=== PATIENT | female | born 1980 | race Caucasian/White ===

== ENCOUNTER 2016-12-09 11:38 | Emergency (ER) | payer BC ==
[2016-12-09 12:11] VITALS: BP 112/64
--- NOTE | 2016-12-09 12:51 | RAD ---
INDICATION: Left ankle pain COMPARISON: None TECHNIQUE: AP, lateral, and oblique views were obtained. FINDINGS: There is no acute fracture or dislocation. There is bilateral soft tissue swelling. IMPRESSION: LATERAL SOFT TISSUE SWELLING
--- NOTE | 2016-12-09 13:01 | UC ---
Lower Extremity/Ankle HPI - HPI Summary HPI Summary: LEFT ANKLE ROLLED LAST NIGHT ; (LATERAL) ANKLE PAIN AND SWELLING SINCE INJURY - History of Current Complaint Chief Complaint: UCLowerExtremity Stated Complaint: LEFT ANKLE PAIN Time Seen by Provider: 12/09/16 12:03 Hx Obtained From: Patient Hx Last Menstrual Period: 11/24/16 Onset/Duration: Sudden Onset, Lasting Days, Still Present Severity Initially: Moderate Severity Currently: Mild Aggravating Factor(s): Standing, Ambulation Alleviating Factor(s): Rest, Elevation, Ice Able to Bear Weight: Yes - Risk Factors Gout Risk Factors: Negative DVT Risk Factors: Negative Septic Arthritis Risk Factor: Negative - Allergies/Home Medications Allergies/Adverse Reactions: Allergies Allergy/AdvReac Type Severity Reaction Status Date / Time seasonal Allergy Eyes Uncoded 12/09/16 12:11 Itchy/Swollen/Red/Watery Home Medications: Home Medications Ibuprofen TAB* [Advil TAB*] 400 mg PO Q6H PRN 12/09/16 [History Confirmed ] PMH/Surg Hx/FS Hx/Imm Hx Previously Healthy: Yes - Surgical History Surgical History: None - Family History Known Family History: Positive: None - Social History Occupation: Employed Full-time Lives: With Family Alcohol Use: Rare Substance Use Type: None Smoking Status (MU): Never Smoked Tobacco - Immunization History Most Recent Influenza Vaccination: [id number] Review of Systems Constitutional: Negative Skin: Negative Eyes: Negative ENT: Negative Respiratory: Negative Cardiovascular: Negative Gastrointestinal: Negative Genitourinary: Negative Motor: Negative Neurovascular: Negative Musculoskeletal: Arthralgia, Edema - LATERAL LEFT ANKLE, Myalgia Neurological: Negative Psychological: Negative All Other Systems Reviewed And Are Negative: Yes Physical Exam Triage Information Reviewed: Yes Appearance: Well-Appearing, No Pain Distress, Well-Nourished Vital Signs: Initial Vital Signs Temp 99.2 F 12/09/16 12:06 Pulse 60 12/09/16 12:06 Resp 16 12/09/16 12:06 BP 112/64 12/09/16 12:06 Pulse Ox 99 12/09/16 12:06 Vital Signs Reviewed: Yes Eye Exam: Normal ENT Exam: Normal ENT: Positive: Normal ENT inspection, Hearing grossly normal, TMs normal Dental Exam: Normal Neck exam: Normal Neck: Positive: Supple, Nontender Respiratory Exam: Normal Respiratory: Positive: Chest non-tender, Lungs clear, Normal breath sounds, No respiratory distress Cardiovascular Exam: Normal Cardiovascular: Positive: RRR, No Murmur, Pulses Normal Abdominal Exam: Normal Abdomen Description: Positive: Nontender, No Organomegaly Musculoskeletal: Positive: Strength Intact, ROM Intact, Edema @ - LEFT LATERAL Neurological Exam: Normal Psychological Exam: Normal Skin Exam: Normal Lower Extremity Course/Dx - Differential Dx/Diagnosis Differential Diagnosis/HQI/PQRI: Fracture (Closed), Sprain, Strain Provider Diagnoses: LEFT ANKLE SPRAIN Discharge - Discharge Plan Condition: Stable Disposition: HOME Patient Education Materials: Ankle Sprain (ED) Referrals: [facility] [Outside] Stephanie Velez MD [Primary Care Provider] -
== END 2016-12-09 13:04 | disposition home or self-care (01) ==
LOC: UCCORT 11:38
DX: S93.402A Sprain of unspecified ligament of left ankle, initial encounter (principal); X50.1XXA Overexertion from prolonged static or awkward postures, initial encounter; Y93.9 Activity, unspecified; Y92.9 Unspecified place or not applicable
CPT/HCPCS: 99211; G0463

== ENCOUNTER 2017-07-19 07:33 | Emergency (ER) | payer BC ==
--- NOTE | 2017-07-19 07:34 | UC ---
Allergic Reaction HPI - HPI Summary HPI Summary: 37 year old female presents with complains of allergic reaction - History of Current Complaint Stated Complaint: ALLERGIC REACTION Time Seen by Provider: 07/19/17 07:34 Hx Obtained From: Patient Hx Last Menstrual Period: 05/15/17 Onset/Duration: Sudden Onset Severity Initially: Moderate Severity Currently: Moderate Pain Scale Used: 0-10 Numeric - 5 - Related Hx Possible Reaction To: Other: - bath balm - Allergies/Home Medications Allergies/Adverse Reactions: Allergies Allergy/AdvReac Type Severity Reaction Status Date / Time No Known Allergies Allergy Verified 07/19/17 07:42 PMH/Surg Hx/FS Hx/Imm Hx Previously Healthy: Yes - Surgical History Surgical History: None - Family History Known Family History: Negative: Cardiac Disease, Hypertension - Social History Alcohol Use: Rare Substance Use Type: None Smoking Status (MU): Never Smoked Tobacco - Immunization History Most Recent Influenza Vaccination: [id number] Review of Systems Constitutional: Negative Skin: Rash Eyes: Negative ENT: Negative Respiratory: Negative Cardiovascular: Negative Gastrointestinal: Negative Genitourinary: Negative Motor: Negative Neurovascular: Negative Musculoskeletal: Negative Neurological: Negative Psychological: Negative All Other Systems Reviewed And Are Negative: Yes Physical Exam Triage Information Reviewed: Yes Vital Signs Reviewed: Yes Eye Exam: Normal ENT Exam: Normal Dental Exam: Normal Neck exam: Normal Neck: Positive: 1 Respiratory Exam: Normal Cardiovascular Exam: Normal Abdominal Exam: Normal Musculoskeletal Exam: Normal Neurological Exam: Normal Psychological Exam: Normal Skin: Positive: rashes Allergic Reaction Course/Dx - Differential Dx/Diagnosis Provider Diagnoses: rash. contact dermatitis Discharge - Discharge Plan Condition: Stable Disposition: HOME Prescriptions: predniSONE TAB* [Deltasone TAB*] 40 mg PO DAILY #10 tab Triamcinolone 0.1% CREAM(NF) [Kenalog Cream 0.1%(NF)] 1 applic TOPICAL BID PRN # 85 gm PRN Reason: Itching Patient Education Materials: Contact Dermatitis (ED) Referrals: Stephanie Velez MD [Primary Care Provider] -
[2017-07-19 07:46] VITALS: BP 120/73
[2017-07-19] MEDS ORDERED: methylPREDNISolone 125 MG* 2 ML VIAL IM ONE (07:49)
== END 2017-07-19 08:21 | disposition home or self-care (01) ==
LOC: UCCORT 07:33
DX: L25.9 Unspecified contact dermatitis, unspecified cause (principal)
CPT/HCPCS: 96372; 99212; G0463; J2930

== ENCOUNTER 2018-08-24 07:00 | Emergency (ER) | payer BC ==
--- OUTSIDE RECORDS SUMMARY | 2018-08-24 07:20 | XMS REPORT | Continuity of Care Document ---
:1980 External Reference #:[id number] Author Name Stephanie Velez MD Address [address] [place] [address] Care Team Providers Name Role Phone Self Care Team Information [employer] Driver Unavailable Payers Date Identification Numbers Payment Provider Subscriber Effective: 2014 Policy Number: [id number] [facility] Commercial Maxi Carpio PayID: [id number] [address] [place] [address] Advance Directives Description No Information Available Problems Date Description Provider Status Onset: 01/24/2016 Recurrent herpes simplex labialis Stephanie Velez MD Active Onset: 01/24/2016 Anxiety disorder Stephanie Velez MD Active Onset: 01/24/2016 Chronic allergic conjunctivitis Stephanie Velez MD Active Onset: 01/24/2016 Perennial allergic rhinitis with seasonal Stephanie Velez MD Active variation Onset: 01/24/2016 Atopic dermatitis Stephanie Velez MD Active Onset: 01/24/2016 External hemorrhoids without complication Stephanie Velez MD Active Onset: 01/24/2016 Heartburn Stephanie Velez MD Active Family History Date Family Member(s) Observation Comments General Diabetes, Adult General Thyroid Disease Father Hypertension Father due to MS () Father LA first occured in his 40's Father Multiple Sclerosis Father Diabetes, Adult Father ankylosing spondylitis Mother Diabetes, Adult Mother Anxiety Mother Hypertension First Sister Thyroid Disease Social History Type Date Description Comments Sex Unknown Education Highest Level Completed education with a Master's Degree bachelors in human development Marital Status Lives With Children Lives With Spouse Diet Healthy, Well Balanced 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 [employer] Hand Dominance RIGHT-handed ADL's/IADL's Independent with all ADL's ADL's/IADL's Independent with all IADL's Abuse No history of abuse Hobbies Gardening Hobbies Sports Hobbies Baking ETOH Use Occasionally consumes alcohol Tobacco Use Start: Unknown Patient has never smoked Recreational Drug Use Denies Drug Use Smoking Status Reviewed: 02/15/18 Patient has never smoked Allergies, Adverse Reactions, Alerts Description No Known Drug Allergies Medications Medication Date Status Form Strength Qnty SIG Indications Ordering Provider Ranitidine HCL 08/18 Active Tablets 150mg 180ta 1 by mouth bs twice a day MD Stephanie as needed Escitalopram 06/24 Active Tablets 10mg 90tab 1 by mouth F41.9 Agustin Oxalate s every day MD Stephanie Epinastine HCL 01/23 Active Solution 0.05% 15ml 1 drop both H10.45 eyes twice MD Stephanie a day Valacyclovir HCL 01/23 Active Tablets 1gm 20tab 2 pills by B00.1 Agustin s mouth every MD Stephanie 12 hours x 2 doses for a total of 4 pills. as needed for cold sore Hydrocortisone 02/22 Active Cream 2.5% 30gm apply twice K64.4 daily to MD Stephanie perianal area as needed Triamcinolone Active Ointment 0.1% 15gm apply L20.9 Agustin Acetonide / thinly once MD Stephanie a day as needed Levocetirizine Active Tablets 5mg 90tab 1 by mouth Agustin Dihydrochloride / s every day MD Stephanie Mometasone Active Suspension 50mcg/Act 51gm 2 sprays Agustin Furoate / each MD Stephanie nostril every day Multivitamin Active Tablets 1 by mouth Unknown Adult / every day Premarin Active Cream 0.625mg/G 90gm 1/2 M applicator MD Stephanie full vaginally 2x/week Metronidazole 01/14 Hx Tablets 500mg 10tab 1 by mouth N77.1 Naim, s twice a day Oneil, - for five M.D. Oseltamivir 06/16 Hx Capsules 75mg 10cap 1 po daily Digiovann Phosphate s for 10 days a, - [place], 06/26 [facility] Omeprazole 01/[address] 20mg 90cap 1 by mouth Agustin s every day MD Stephanie - 01/23 Omeprazole 01/[address] 40mg 180ca 1 by mouth R12 ps twice a day MD Stephanie - 07/06 Escitalopram 01/23 Hx Tablets 5mg 90tab 1 by mouth F41.9 Bui, Oxalate s every day Pedro Luis, - DO 06/24 Azelastine HCL 01/23 Hx Solution 0.15% 90ml 2 sprays J30.89 Agustin (Nasal) each MD Stephanie - nostril 12/21 twice a day as needed. Omnaris 01/23 Hx Suspension 50mcg/Act 37.5g inhale 2 J30.89 Agustin m sprays in MD Stephanie - each 07/06 nostril daily Anusol-HC 01/23 Hx Cream 2.5% 30gm apply twice K64.4 Agustin a day as MD Stephanie - needed 01/04 Azelastine HCL 02/12 Hx Solution 0.05% 1 drop both Cancino (Ophthalmic) eyes 1-2 MD J Carlos - times daily 01/04 as needed for allergicic symptoms. Aldara 02/12 Hx Cream 5% 24uni rub some 078.10 Cancino ts cream on MD J Carlos - the warts 3 01/04 times weekly until the warts are gone, but no longer than 16 weeks Abreva 02/12 Hx Cream 10% use as 054.79 Cancino directed MD J Carlos - for cold 01/04 sores /2016 Denavir 10/02 Hx Cream 1% 5unit apply as 054.79 Cancino s directed MD J Carlos - for cold 01/04 sores /2017 Acetaminophen 07/19 Hx Tablets 500mg 1 by mouth Cancino, every 6 MD J Carlos - hours as 01/13 needed for pain Fluticasone 00 Hx Suspension 50mcg/Act 2 sprays Unknown Propionate /0000 each nare - every day 01/13 Metronidazole 00/00 Hx Gel 0.75% insert one Unknown /0000 applicator - full every 02/15 night time Zantac 150 00 Hx Tablets 150mg 1 by mouth Unknown Maximum Strength /0000 twice a day - as needed 08/18 Immunizations CPT Code Status Date Vaccine Lot # [id number] Given 05/06/2018 Flu Vaccine NOS Q2035 Given 06/27/2017 Afluria Imunization Q2039 Given 04/29/2016 Flu Vaccine NOS Q2037 Given 04/30/2014 Fluvirin Immunization 77988 Given 05/13/2013 Influenza, Preservative Free 3 Years And Older 53156 Given 04/21/2010 Tdap (Adacel) Ages 7 And Above Only 43587 Given 05/29/2009 Influenza Virus Vaccine Pandemic Formulation - [id number] 91405 Given 05/29/2009 Administration Swine Flu Vaccine H1N1 30836 Given 05/08/2008 Afluria Or Fluvirin Flu Vac Intramuscular 93235 Given 05/09/2007 Afluria Or Fluvirin Flu Vac Intramuscular 23479 Given 06/05/2005 Afluria Or Fluvirin Flu Vac Intramuscular 00014 Given 01/07/2005 Tetanus And Diptheria Toxoids For Adult Use-preservative free 52714 Given 12/12/2003 Immunization Td 7 Yrs Or Older 31228 Given 10/16/1999 Meningococcal Immunization 81845 Given 07/17/1996 Hepatitis B Vac Ped/Adolescent 3 Dose Schedule 06652 Given 02/18/1996 Hepatitis B Vac Ped/Adolescent 3 Dose Schedule 98776 Given 01/18/1996 Hepatitis B Vac Ped/Adolescent 3 Dose Schedule 63406 Given 03/12/1995 Immunization Td 7 Yrs Or Older 27939 Given 03/12/1995 MMR Virus Immunization 02642 Given 03/12/1987 Oral Poliovirus Immunization 10495 Given 03/12/1987 DTP Immunization 10328 Given 09/28/1982 Oral Poliovirus Immunization 86074 Given 09/27/1982 DTP Immunization 40589 Given 07/24/1982 MMR Virus Immunization 16458 Given 1981 DTP Immunization 67221 Given 1980 Oral Poliovirus Immunization 54826 Given 1980 DTP Immunization 32776 Given 1981 Oral Poliovirus Immunization 96676 Given 1980 DTP Immunization Vital Signs Date Vital Result Comment 08/18/2018 4:18pm Weight 200.00 lb Heart Rate 68 /min BP Systolic 118 mmHg BP Diastolic 68 mmHg Respiratory Rate 16 /min Height 65 inches 5'5" O2 % BldC Oximetry 99 % Ra BMI (Body Mass Index) 33.3 kg/m2 03/17/2018 1:00pm Weight 200.00 lb Heart Rate 80 /min BP Systolic 118 mmHg BP Diastolic 64 mmHg Respiratory Rate 20 /min Height 65 inches 5'5" 02/15/18 BMI (Body Mass Index) 33.3 kg/m2 02/15/2018 4:18pm Weight 200.00 lb Heart Rate 68 /min BP Systolic 110 mmHg BP Diastolic 70 mmHg Respiratory Rate 18 /min Height 65 inches 5'5" 02/15/18 BMI (Body Mass Index) 33.3 kg/m2 01/13/2018 1:30pm Weight 196.00 lb BP Systolic 116 mmHg BP Diastolic 62 mmHg Height 65 inches 5'5" 07/09/17 BMI (Body Mass Index) 32.6 kg/m2 07/09/2017 4:06pm Weight 194.00 lb Heart Rate 76 /min BP Systolic 122 mmHg BP Diastolic 70 mmHg Respiratory Rate 18 /min Height 65 inches 5'5" 07/09/17 BMI (Body Mass Index) 32.3 kg/m2 01/04/2017 4:09pm Weight 194.00 lb Heart Rate 76 /min BP Systolic 112 mmHg BP Diastolic 70 mmHg Respiratory Rate 18 /min Height 65 inches 5'5" 01/24/16 BMI (Body Mass Index) 32.3 kg/m2 07/06/2016 3:37pm Weight 178.00 lb Heart Rate 76 /min BP Systolic 110 mmHg BP Diastolic 68 mmHg Respiratory Rate 18 /min Height 65 inches 5'5" 01/24/16 BMI (Body Mass Index) 29.6 kg/m2 01/24/2016 1:09pm Weight 175.00 lb Heart Rate 76 /min BP Systolic 100 mmHg BP Diastolic 60 mmHg Respiratory Rate 18 /min Height 65 inches 5'5" 01/24/16 BMI (Body Mass Index) 29.1 kg/m2 Results Test Date Facility Test Result H/L Range Note Hemochromatosis 03/07/2018 [facility] ( SEE NOTE) 1, 2 ,Dna,Hereditary Lab Dept Hemochromatosis, [phone] Dna CMP, Comp 02/07/2018 [facility] Glucose 99 mg/dL N 74- 106 3 Metabolic Panel (315)- - BUN 10 mg/dL N 7-18 Creatinine 0.7 mg/dL N 0.6-1.3 Glom Filtration Rate, Estimate >60 mL/min >60 If >60 mL/min >60 4 BUN/Creat 14.2 ratio Sodium 142 mmol/L N 136-145 Potassium 4.2 mmol/L N 3.5-5.1 Chloride 107 mmol/L N 98-107 Carbon Dioxide 27 mmol/L N 21-32 Anion Gap 8 mEq/L N 8-16 Calcium 8.3 mg/dL Low 8.5-10.1 Total Protein 6.7 g/dL N 6.4-8.2 Albumin 3.4 g/dL N 3.4-5.0 Globulin 3.3 g/dL N 1.9-4.3 Alb/Glob 1.0 ratio Bilirubin,Total 0.3 mg/dL N 0.2-1.0 Sgot/Ast 15 U/L N 15-37 SGPT/Alt 20 U/L N 12-78 Alkaline Phosphatase 63 U/L N 45-117 Laboratory test 02/07/2018 [facility] Thyroid Stim 1.63 uIU/mL N 0.30-4.20 finding (315)- - Hormone CBS W/Automated 02/07/2018 [facility] White Blood 7.4 K/ uL N 3.1-10.7 Diff (315)- - Count Red Blood Count 4.34 M/uL N 3.90-5.40 Hemoglobin 13.0 gm/dL N 11.6-15.8 Hematocrit 39.0 % N 36.0-46.1 Mean Cell Volume 89.9 fl N 80.9-99.0 Mean Corpuscular HGB 30.0 pg N 25.9-32.7 Mean Corpuscular HGB Conc 33.3 g/dL N 30.8-34.3 Platelet Count 320 K/uL N 155-360 Red Cell Distri Width SD 42.8 fl N 3-47 Red Cell Distri Width %CV 13.4 % N 11.7-14.4 Mean Platelet Volume 9.6 fL N 8.9-12.4 Neut% 61.8 % N 40.4-72.8 Lymph % 27.1 % N 20.0-42.0 [place] % 7.7 % N 4.3-13.2 Eo% 3.0 % N 0.0-6.6 Bas% 0.4 % N 0.0-1.1 Neut# 4.58 K/uL N 1.8-7.0 Lymph # 2.01 K/uL N 1.0-4.0 [place] # 0.57 K/uL N 0.3-0.9 Eos # 0.22 K/uL N 0.0-0.5 Baso # 0.03 K/uL N 0.0-0.1 Laboratory test 01/13/2018 [facility] Urine Culture Microbiology res <SEE 5 finding NOTE> Rout Urine W/ Micro 01/13/2018 [facility] Color YELLOW -RL Appearance CLEAR Spec Grav Urine 1.010 (1.003-1.030) PH Urine 7.5 (5.0-7.5) Leuk Esterase NEGATIVE (Neg) Nitrite Urine NEGATIVE (Neg) Protein Urine NEGATIVE (Neg) Glucose Urine NEGATIVE (Neg) Ketone Urine NEGATIVE (Neg) Urobilinogen 0.2 mg/dL (0-1.0) Bilirubin Urine NEGATIVE (Neg) Blood/HGB Urine NEGATIVE (Neg) Epithelial Cells NEGATIVE [HPF] (Neg) Hyaline Casts 0.9 [LPF] (0-5) Bacteria NEGATIVE [HPF] (Neg) Urine WBC 1.8 [HPF] (0-8) Urine RBC 1.6 [HPF] (0-3) 6 Affirm 01/13/2018 [facility] Trichomonas Vaginalis Negative Negative Gardnerella Vaginalis Positive Abnormal Negative Lavinia Species Negative Negative CBC With Auto 12/22/2016 [facility] White Blood 7.3 K/uL N 3.1-10.7 7 Diff (315)- - Count Red Blood Count 4.32 M/uL N 3.90-5.40 Hemoglobin 12.9 gm/dL N 11.6-15.8 Hematocrit 38.5 % N 36.0-46.1 Mean Cell Volume 89.1 fl N 80.9-99.0 Mean Corpuscular HGB 29.9 pg N 25.9-32.7 Mean Corpuscular HGB Conc 33.5 g/dL N 30.8-34.3 Platelet Count 328 K/uL N 150-400 Red Cell Distri Width SD 43.0 fl N 3-47 Red Cell Distri Width %CV 13.6 % N 11.7-14.4 Mean Platelet Volume 9.8 fL N 8.9-12.4 Neut% 67.8 % N 40.4-72.8 Lymph % 21.0 % N 20.0-42.0 [place] % 7.5 % N 4.3-13.2 Eo% 3.3 % N 0.0-6.6 Bas% 0.4 % N 0.0-1.1 Neut# 4.97 K/uL N 1.8-7.0 Lymph # 1.54 K/uL N 1.0-4.0 [place] # 0.55 K/uL N 0.3-0.9 Eos # 0.24 K/uL N 0.0-0.5 Baso # 0.03 K/uL N 0.0-0.1 CMP, Comp Metabolic 12/22/2016 [facility] Glucose 92 mg/ dL N 74-106 Panel (315)- - BUN 10 mg/dL N 7-18 Creatinine 0.7 mg/dL N 0.6-1.3 Glom Filtration Rate, Estimate >60 mL/min >60 If >60 mL/min >60 8 BUN/Creat 14.2 ratio Sodium 140 mmol/L N 136-145 Potassium 4.3 mmol/L N 3.5-5.1 Chloride 107 mmol/L N 98-107 Carbon Dioxide 26 mmol/L N 21-32 Anion Gap 7 mEq/L Low 8-16 Calcium 8.4 mg/dL Low 8.5-10.1 Total Protein 6.8 g/dL N 6.4-8.2 Albumin 3.5 g/dL N 3.4-5.0 Globulin 3.3 g/dL N 1.9-4.3 Alb/Glob 1.1 ratio Bilirubin,Total 0.3 mg/dL N 0.2-1.0 Sgot/Ast 11 U/L Low 15-37 9 SGPT/Alt 17 U/L N 12-78 Alkaline Phosphatase 60 U/L N 45-117 Laboratory test 12/22/2016 [facility] Thyroid Stim 1.52 uIU/mL N 0.30-4.20 finding (315)- - Hormone Laboratory test 02/06/2016 [facility] H. Pylori Stool Negative Negative 10 finding (315)- - Antigen Lipid Panel 02/06/2016 [facility] Cholesterol 203 mg/dL High <200 11 (315)- - Triglycerides 94 mg/dL <150 12 HDL Cholesterol 55 mg/dL >40 13 LDL-Cholesterol 129 mg/dL < 100 14 CBC With Auto 02/06/2016 [facility] White Blood 6.9 K/uL 3.1-10.7 Diff (315)- - Count Red Blood Count 4.55 M/uL 3.90-5.40 Hemoglobin 13.1 gm/dL 11.6-15.8 Hematocrit 40.3 % 36.0-46.1 Mean Cell Volume 88.6 fl 80.9-99.0 Mean Corpuscular HGB 28.8 pg 25.9-32.7 Mean Corpuscular HGB Conc 32.5 g/dL 30.8-34.3 Platelet Count 335 K/uL 155-360 Red Cell Distri Width SD 45.1 fl 3-47 Red Cell Distri Width %CV 14.3 % 11.7-14.4 Mean Platelet Volume 9.4 fL 8.9-12.4 Neut% 57.4 % 40.4-72.8 Lymph % 30.0 % 17.0-46.1 [place] % 7.6 % 4.3-13.2 Eo% 4.4 % 0.0-6.6 Bas% 0.6 % 0.0-1.1 Neut# 3.94 K/uL 1.8-7.0 Lymph # 2.06 K/uL 1.8-7.0 [place] # 0.52 K/uL 0.3-0.9 Eos # 0.30 K/uL 0.0-0.5 Baso # 0.04 K/uL 0.0-0.1 Hepatic (Liver) 02/06/2016 [facility] Total Protein 6.9 g /dL 6.4-8.2 Panel (315)- - Albumin 3.5 g/dL 3.4-5.0 Globulin 3.4 g/dL 1.9-4.3 Alb/Glob 1.0 ratio Bilirubin,Total 0.2 mg/dL 0.2-1.0 Bilirubin,Direct < 0.1 mg/dL 0.0-0.2 Bilirubin,Indirect 0.1 mg/dL 0.0-0.9 Sgot/Ast 11 U/L Low 15-37 15 SGPT/Alt 18 U/L 12-78 Alkaline Phosphatase 59 U/L 45-117 Laboratory test 02/06/2016 [facility] Thyroid Stim 2.66 uIU/mL 0.30-4.20 finding (315)- - Hormone BMP (Basic) 02/06/2016 [facility] Basic Metabolic (SEE NOTE) 16 (315)- - Panel Glucose 87 mg/dL 74-106 BUN 9 mg/dL 7-18 Creatinine 0.7 mg/dL 0.6-1.3 Glom Filtration Rate, Estimate >60 mL/min >60 If >60 mL/min >60 17 BUN/Creat 12.8 ratio Sodium 139 mmol/L 136-145 Potassium 4.2 mmol/L 3.5-5.1 Chloride 105 mmol/L 98-107 Carbon Dioxide 27 mmol/L 21-32 Anion Gap 7 mEq/L Low 8-16 Calcium 8.1 mg/dL Low 8.5-10.1 Laboratory test finding 02/12/2015 N2N/CCD Import Ua Appera clear Ua Bacteria none Ua Bilirubin negative Ua Casts none Ua Color yellow Ua Crystals none Ua Epithelial Cells 2-4 squamous Ua Glucose negative Ua Ketones negative Ua Leuko negative Ua Nitrite negative Ua Occult Blood trace-intact Ua PH 7.0 Ua Protein negative Ua RBC rare RBC/HPF Ua Source voided Ua Specific [place] 1.020 Ua Urobilinogen 1.0 Ua WBC none Ua Yeast none Laboratory test 02/12/2015 N2N/CCD Import Basophil 0.0 x10E3/uL 0.0-0.2 18 finding Absolute Basophils 0.2 % 0.0-2.0 Eosinophil Absolute 0.2 x10E3/uL 0.0-0.5 Eosinophils 2.0 % 0.0-6.0 Hematocrit 41.2 % 35.0-47.0 Hemoglobin 13.3 g/dL 11.8-15.8 Lymphocytes 25.9 % 15.0-45.0 Lymphocytes Absolute 2.4 x10E3/uL 1.0-3.4 MCH 30.7 pg 27.5-33.5 MCHC 32.3 g/dL 32.0-36.0 MCV 95.2 fl 82.0-98.0 MPV 9.7 fl 8.6-12.6 Monocyte Absolute 0.6 x10E3/uL 0.2-1.0 Monocytes 6.3 % 2.0-13.0 Neutrophil Absolute 6.2 x10E3/uL 1.4-7.0 Platelet Count 321 x10E3/uL 130-400 RBC 4.33 x10E6/uL 3.80-5.30 RDW 12.6 % 11.5-14.5 Segmented Neutrophils 65.6 % 44.0-74.0 TSH (Thyrotropin) 0.990 uIU/ml 0.350-5.500 WBC 9.4 x10E3/uL 4.3-10.9 Comprehensive Metabolic 02/12/2015 [facility] Import Albumin 4.4 g/dL 3.5- 4.7 Alkaline Phosphatase 58 U/L 10-118 BUN 13 mg/dL 4-18 Bilirubin, Total 0.30 mg/dL 0.30-1.20 Calcium 9.3 mg/dL 8.4-10.4 Carbon Dioxide 30 mmol/L 20-32 Chloride 103 mmol/L 98-110 Creatinine, Serum 0.47 mg/dL Low 0.50-1.10 Glucose 78 mg/dL 70-100 Potassium 4.0 mmol/L 3.5-5.3 Protein, Total 6.6 g/dL 6.4-8.3 SGPT (Alt) 13 U/L 7-50 Sgot (Ast) 17 U/L 3-40 Sodium 138 mmol/L 136-146 Lipid Panel 02/12/2015 [facility] Import Chol/HDL Cholesterol 3.1 Cholesterol, Total 197 mg/dL <200 HDL Cholesterol 63 mg/dL High 40-60 LDL Cholesterol, Calc. 101 mg/dL 19 LDL/HDL Cholesterol 1.6 Triglycerides 164 mg/dL <150 Egfr (Calculated) 02/12/2015 N2N/CCD Import Egfr 130 Egfr, -Equatorial [place] 150 20 Estimated GFR (Calculated) Laboratory test finding 02/23/2014 N2N/CCD Import Ua Appera clear Ua Bacteria none Ua Bilirubin neg Ua Casts none Ua Color yellow Ua Crystals none Ua Epithelial Cells 1-2 squamous Ua Glucose neg Ua Ketones neg Ua Leuko neg Ua Nitrite neg Ua Occult Blood large Ua PH 7.0 Ua Protein neg Ua RBC 2-4 RBC/HPF Ua Source voided Ua Specific [place] 1.015 Ua Urobilinogen 0.2 Ua WBC rare WBC Ua Yeast none Laboratory test 02/23/2014 N2N/CCD Import Chlamydia See Below 21 finding Trachomatis, Rena Genital Culture 02/23/2014 N2N/CCD Import .Gram Stain Few Epi, No 22 Additional Orga <See Note> Genital Culture Escherichia coli 23 Gonococcus Aptima 02/23/2014 N2N/CCD Import N Gonorrhoeae, Rena See Below 24 Endocerv/Vag Neisseria Gonorrhoeae,Rena Negative Negative Source- Endocerv/Vag Swab * Comprehensive Metabolic 01/16/2014 N2N/CCD Import Albumin 4.6 g/dL 3.5- 4.7 25 Alkaline Phosphatase 61 U/L 10-118 BUN 16 mg/dL 4-18 Bilirubin, Total 0.30 mg/dL 0.30-1.20 Calcium 9.0 mg/dL 8.4-10.4 Carbon Dioxide 28 mmol/L 20-32 Chloride 104 mmol/L 98-110 Creatinine, Serum 0.61 mg/dL 0.50-1.10 Glucose 89 mg/dL 70-100 Potassium 4.1 mmol/L 3.5-5.3 Protein, Total 6.9 g/dL 6.4-8.3 SGPT (Alt) 19 U/L 7-50 Sgot (Ast) 19 U/L 3-40 Sodium 138 mmol/L 136-146 Egfr (Calculated) 01/16/2014 N2N/CCD Import Egfr >60 Egfr, -Equatorial [place] >60 26 Estimated GFR (Calculated) Laboratory test 01/16/2014 N2N/CCD Import Basophil 0.0 x10E3/uL 0.0-0.2 finding Absolute Basophils 0.2 % 0.0-2.0 Eosinophil Absolute 0.3 x10E3/uL 0.0-0.5 Eosinophils 3.9 % 0.0-6.0 Hematocrit 41.3 % 35.0-47.0 Hemoglobin 13.9 g/dL 11.8-15.8 Lipase 56 U/L 1-64 Lymphocytes 28.0 % 15.0-45.0 Lymphocytes Absolute 2.3 x10E3/uL 1.0-3.4 MCH 30.9 pg 27.5-33.5 MCHC 33.7 g/dL 32.0-36.0 MCV 91.8 fl 82.0-98.0 MPV 9.6 fl 8.6-12.6 Monocyte Absolute 0.5 x10E3/uL 0.2-1.0 Monocytes 6.4 % 2.0-13.0 Neutrophil Absolute 5.0 x10E3/uL 1.4-7.0 Platelet Count 289 x10E3/uL 130-400 RBC 4.50 x10E6/uL 3.80-5.30 RDW 12.7 % 11.5-14.5 Segmented Neutrophils 61.5 % 44.0-74.0 WBC 8.2 x10E3/uL 4.3-10.9 Laboratory test 11/06/2013 N2N/CCD Import Surgical Junct/derm nevi 27 finding Pathology Urine Screen 07/02/2013 N2N/CCD Import Urine Bilirubin Negative Negative - Dipstick Urine Blood Negative Negative Urine Clarity Clear Clear Urine Color Yellow Yellow Urine Glucose - Dipstick Negative mg/dL Negative Urine Ketone Negative mg/dL Negative Urine Leuk Esterase Negative Negative Urine Nitrite - Dipstick Negative Negative Urine PH 7.5 6.5-7.5 Urine Protein - Dipstick Negative mg/dL Negative Urine Specific [place] <=1.005 Low 1.010-1.030 Urine Urobilinogen - Dipstick 0.2 E.U./dL 0.2-1.0 Laboratory test finding 07/02/2013 N2N/CCD Import Bas% 0.3 % 0.0-1.1 Baso # 0.02 K/uL 0.0-0.1 CK 57 U/L 26-190 Eo% 1.9 % 0.0-6.6 Eos # 0.12 K/uL 0.0-0.5 HCG Serum, Qualitative Negative Hematocrit 41.1 % 36.0-46.1 Hemoglobin 14.5 gm/dL 11.6-15.8 Lipase 150 U/L 28-380 28 Lymph # 1.43 K/uL 0.8-3.4 Lymph % 22.1 % 17.0-46.1 Mean Cell Volume 89.9 fl 80.9-99.0 Mean Corpuscular HGB 31.7 pg 25.9-32.7 Mean Corpuscular HGB Conc 35.3 g/dL High 30.8-34.3 Mean Platelet Volume 9.4 fL 8.9-12.4 [place] # 0.51 K/uL 0.3-0.9 [place] % 7.9 % 4.3-13.2 Neut# 4.38 K/uL 1.0-7.0 Neut% 67.8 % 40.4-72.8 Platelet Count 303 K/uL 155-360 Red Blood Count 4.57 M/uL 3.90-5.40 Red Cell Distri Width %CV 12.2 % 11.7-14.4 Red Cell Distri Width SD 39.5 fl 3-47 Troponin-I < 0.02 ng/mL 0.00-0.50 White Blood Count 6.5 K/uL 3.1-10.7 Comprehensive Metabolic Panel 07/02/2013 N2N/CCD Import Alb/Glob 1.3 ratio Albumin 3.9 g/dL 3.5-5.0 Alkaline Phosphatase 65 U/L 50-136 Anion Gap 10 mEq/L 8-16 BUN 11 mg/dL 5-23 BUN/Creat 15.7 ratio Bilirubin,Total 0.5 mg/dL 0.2-1.2 Calcium 9.3 mg/dL 8.5-10.1 Carbon Dioxide 27 mEq/L 18-29 Chloride 106 mmol/L 98-107 Creatinine 0.7 mg/dL 0.5-1.4 Globulin 3.1 g/dL 1.9-4.3 Glom Filtration Rate, Estimate >60 mL/min >60 Glucose 96 mg/dL 76-115 29 If >60 mL/min >60 Potassium 4.0 mmol/L 3.5-5.1 SGPT/Alt 16 U/L Low 30-65 Sgot/Ast 11 U/L Low 16-40 Sodium 139 mmol/L 136-145 Total Protein 7.0 g/dL 6.3-8.0 Laboratory test 07/02/2013 N2N/CCD Import Troponin-I < 0.02 ng/mL 0.00- 0.50 30 finding Laboratory test 07/02/2013 N2N/CCD Import Troponin-I < 0.02 ng/mL 0.00- 0.50 31 finding Laboratory test 02/22/2013 N2N/CCD Import Ua Appera clear finding Ua Bacteria none Ua Bilirubin neg Ua Casts none Ua Color yellow Ua Crystals none Ua Epithelial Cells 2-3 squam Ua Glucose neg Ua Ketones neg Ua Leuko small Ua Nitrite neg Ua Occult Blood neg Ua PH 7.5 Ua Protein neg Ua RBC none Ua Source voided Ua Specific [place] 1.015 Ua Urobilinogen 0.2 Ua WBC 1-2 WBC/HPF Ua Yeast none Laboratory test 02/22/2013 N2N/CCD Import Basophil 0.0 x10E3/uL 0.0-0.2 32 finding Absolute Basophils 0.4 % 0.0-2.0 Eosinophil Absolute 0.2 x10E3/uL 0.0-0.5 Eosinophils 2.4 % 0.0-6.0 Hematocrit 41.2 % 35.0-47.0 Hemoglobin 14.0 g/dL 11.8-15.8 Lymphocytes 30.5 % 15.0-45.0 Lymphocytes Absolute 2.2 x10E3/uL 1.0-3.4 MCH 30.8 pg 27.5-33.5 MCHC 34.0 g/dL 32.0-36.0 MCV 90.7 fl 82.0-98.0 MPV 10.0 fl 6.5-10.5 Monocyte Absolute 0.4 x10E3/uL 0.2-1.0 Monocytes 5.3 % 2.0-13.0 Neutrophil Absolute 4.4 x10E3/uL 1.4-7.0 Platelet Count 289 x10E3/uL 130-400 RBC 4.54 x10E6/uL 3.80-5.30 RDW 12.4 % 11.5-14.5 Segmented Neutrophils 61.4 % 44.0-74.0 WBC 7.2 x10E3/uL 4.3-10.9 Comprehensive Metabolic 02/22/2013 N2N/CCD Import Albumin 4.2 g/dL 3.5- 4.7 Alkaline Phosphatase 66 U/L 10-118 BUN 11 mg/dL 4-18 Bilirubin, Total 0.30 mg/dL 0.30-1.20 Calcium 9.0 mg/dL 8.4-10.4 Carbon Dioxide 26 mmol/L 20-32 Chloride 104 mmol/L 98-110 Creatinine, Serum 0.71 mg/dL 0.50-1.10 Glucose 117 mg/dL High 70-100 Potassium 3.8 mmol/L 3.5-5.3 Protein, Total 6.6 g/dL 6.4-8.3 SGPT (Alt) 18 U/L 7-50 Sgot (Ast) 19 U/L 3-40 Sodium 140 mmol/L 136-146 Egfr (Calculated) 02/22/2013 N2N/CCD Import Egfr >60 Egfr, -[place] >60 33 Estimated GFR (Calculated) Hemoglobin A1c 02/22/2013 N2N/CCD Import Estimated Avg Glucose 108.3 mg/dL 34 Hemoglobin A1c 5.4 % Lipid Panel 02/22/2013 N2N/CCD Import Chol/HDL Cholesterol 3.6 Cholesterol, Total 174 mg/dL <200 HDL Cholesterol 49 mg/dL 40-60 LDL Cholesterol, Calc. 95 mg/dL 35 LDL/HDL Cholesterol 1.9 Triglycerides 149 mg/dL <150 Laboratory test 04/18/2012 N2N/CCD Import Urine Culture Streptococcus ag 36 finding <See Note> Laboratory test 04/18/2012 N2N/CCD Import BUN 11 mg/dL 4-18 37 finding Basophil Absolute 0.0 x10E3/uL 0.0-0.2 Basophils 0.3 % 0.0-2.0 Calcium 9.2 mg/dL 8.4-10.4 Carbon Dioxide 29 mmol/L 20-32 Chloride 104 mmol/L 98-110 Creatinine, Serum 0.65 mg/dL 0.50-1.10 Egfr >60 Egfr, -[place] >60 38 Eosinophil Absolute 0.1 x10E3/uL 0.0-0.5 Eosinophils 1.6 % 0.0-6.0 Estimated GFR (Calculated) Glucose 94 mg/dL 70-100 Hematocrit 40.2 % 35.0-47.0 Hemoglobin 13.5 g/dL 11.8-15.8 Lymphocytes 38.4 % 15.0-45.0 Lymphocytes Absolute 2.6 x10E3/uL 1.0-3.4 MCH 30.9 pg 27.5-33.5 MCHC 33.6 g/dL 32.0-36.0 MCV 92.0 fl 82.0-98.0 MPV 9.6 fl 6.5-10.5 Monocyte Absolute 0.6 x10E3/uL 0.2-1.0 Monocytes 8.3 % 2.0-13.0 Neutrophil Absolute 3.4 x10E3/uL 1.4-7.0 Platelet Count 281 x10E3/uL 130-400 Potassium 4.2 mmol/L 3.5-5.3 RBC 4.37 x10E6/uL 3.80-5.30 RDW 12.1 % 11.5-14.5 Segmented Neutrophils 51.4 % 44.0-74.0 Sodium 140 mmol/L 136-146 WBC 6.7 x10E3/uL 4.3-10.9 Laboratory test finding 04/18/2012 [facility] Import Ua Appera clear Ua Bacteria few cocci Ua Bilirubin neg Ua Casts none Ua Color yellow Ua Crystals none Ua Epithelial Cells 1-3 squam/trans Ua Glucose neg Ua Ketones neg Ua Leuko small Ua Nitrite neg Ua Occult Blood trace-lysed Ua PH 6.5 Ua Protein neg Ua RBC 0-2 RBC/HPF Ua Source voided Ua Specific [place] 1.020 Ua Urobilinogen 0.2 e.u./dl Ua WBC 5-8 WBC/HPF Ua Yeast none Laboratory test 10/19/2011 [employer] Import M <See 39 finding Note> Laboratory test 01/15/2011 [facility] Import BUN 19 mg/dL High 4-18 finding Band 0.0 % 0.0-4.0 Basophil Absolute 0.0 x10E3/uL 0.0-0.2 Basophils 0.0 % 0.0-2.0 Calcium 9.4 mg/dL 8.4-10.4 Carbon Dioxide 29 mmol/L 20-32 Chloride 105 mmol/L 98-110 Creatinine, Serum 0.75 mg/dL 0.50-1.10 Egfr >60 Egfr, -[place] >60 40 Eosinophil Absolute 0.2 x10E3/uL 0.0-0.5 Eosinophils 2.0 % 0.0-6.0 Estimated GFR (Calculated) Glucose 77 mg/dL 70-100 Hematocrit 40.6 % 35.0-47.0 Hemoglobin 13.5 g/dL 11.8-15.8 Lymphocytes 22.0 % 15.0-45.0 Lymphocytes Absolute 2.6 x10E3/uL 1.0-3.4 MCH 30.6 pg 27.5-33.5 MCHC 33.3 g/dL 32.0-36.0 MCV 92.1 fl 82.0-98.0 MPV 9.7 fl 6.5-10.5 Monocyte Absolute 0.8 x10E3/uL 0.2-1.0 Monocytes 7.0 % 2.0-13.0 Neutrophil Absolute 8.1 x10E3/uL High 1.4-7.0 Platelet Count 312 x10E3/uL 130-400 Potassium 4.1 mmol/L 3.5-5.3 RBC 4.41 x10E6/uL 3.80-5.30 RDW 12.7 % 11.5-14.5 Segmented Neutrophils 69.0 % 44.0-74.0 Sodium 140 mmol/L 136-146 WBC 11.8 x10E3/uL High 4.3-10.9 Lipid Panel 01/15/2011 [facility] Import Chol/HDL Cholesterol 3.3 Cholesterol, Total 170 mg/dL <200 HDL Cholesterol 52 mg/dL 40-60 LDL Cholesterol, Calc. 102 mg/dL 41 LDL/HDL Cholesterol 2.0 Triglycerides 79 mg/dL <150 Laboratory test finding 01/15/2011 [facility] Import Ua Appera clear Ua Bacteria few rods Ua Bilirubin neg Ua Casts none Ua Color yellow Ua Crystals none Ua Epithelial Cells 5-10 squamous Ua Glucose neg Ua Ketones neg Ua Leuko small Ua Nitrite neg Ua Occult Blood large Ua PH 5.5 Ua Protein neg Ua RBC 0-2 RBC/HPF Ua Source voided Ua Specific Patterson 1.025 Ua Urobilinogen 0.2 Ua WBC rare WBC/HPF Ua Yeast none Laboratory test finding 07/08/2009 [facility] Import Alb/Glob 1.3 Albumin 4.2 g/dL 3.5-5.0 Alkaline Phosphatase 77 U/L 50-136 Anion Gap 6 mEq/L Low 8-16 BUN 10 mg/dL 5-23 BUN/Creat 14.2 Bas% 0.5 % 0.0-1.1 Baso # 0.0 K/uL 0.0-0.1 Bilirubin,Total 0.3 mg/dL 0.2-1.2 CK 48 U/L 26-190 42 Calcium 9.7 mg/dL 8.5-10.1 Carbon Dioxide 32 mEq/L 21-32 Chloride 103 mEq/L 98-107 Creatinine 0.7 mg/dL 0.5-1.4 D-Dimer, Quantitative < 0.22 ug/mL 43 Eo% 1.8 % 0.0-6.6 Eos # 0.2 K/uL 0.0-0.5 Estimated GFR Panel Globulin 3.3 gm/dL 1.9-4.3 Glom Filtration Rate, Estimate >60 mL/min >60 Glucose 91 mg/dL 76-115 44 HCG Serum, Qualitative Negative Hematocrit 41.9 % 36.0-46.1 Hemoglobin 14.7 gm/dL 11.6-15.8 If >60 mL/min >60 Lymph # 2.5 K/uL 0.8-3.4 Lymph % 30.0 % 17.0-46.1 Mean Cell Volume 89.7 fl 80.9-99.0 Mean Corpuscular HGB 31.5 pg 25.9-32.7 Mean Corpuscular HGB Conc 35.1 g/dL High 30.8-34.3 Mean Platelet Volume 9.6 fL 8.9-12.4 [place] # 0.7 K/uL 0.3-0.9 [place] % 7.7 % 4.3-13.2 Neut# 5.1 K/uL 1.0-7.0 Neut% 60.0 % 40.4-72.8 Platelet Count 276 K/uL 155-360 Potassium 4.1 mEq/L 3.5-5.1 Red Blood Count 4.67 M/uL 3.90-5.40 Red Cell Distri Width %CV 12.2 % 11.7-14.4 Red Cell Distri Width SD 39 fl 3-47 SGPT/Alt 45 U/L 30-65 Sgot/Ast 18 U/L 16-40 Sodium 137 mEq/L 136-145 Total Protein 7.5 g/dL 6.3-8.0 Troponin-I 0.0 ng/mL 0.0-0.6 White Blood Count 8.4 K/uL 3.1-10.7 Laboratory test finding 08/31/2007 N2N[facility] Import BUN 10 mg/dL 4-18 Calcium 9.8 mg/dL 8.4-10.4 Carbon Dioxide 26 mmol/L 20-32 Chloride 101 mmol/L 98-110 Creatinine, Serum 0.9 mg/dL 0.5-1.2 GFR (Calculated) >60 45 Glucose 82 mg/dL 70-100 Potassium 3.7 mmol/L 3.5-5.3 Sodium 137 mmol/L 136-146 Lipid Profile 08/31/2007 N[facility] Import Chol/HDL Cholesterol 3.8 Cholesterol, Total 194 mg/dL 120-200 46 HDL Cholesterol 51 mg/dL 40-60 47 LDL Cholesterol, Calc. 119 mg/dL 48 LDL/HDL Cholesterol 2.3 49 Triglycerides 118 mg/dL 50 Ua Routine 08/31/2007 N2N/[facility] Import Ua Appera clear High 1-2 Epi/HPF Ua Bilirubin neg Ua Color pale yellow Ua Glucose neg Ua Ketones neg Ua Leuko small High Rare WBC/HPF Ua Nitrite neg Ua Occult Blood trace-intact High Rare RBC/HPF Ua PH 6.0 Ua Protein neg Ua Specific Patterson 1.005 Ua Urobilinogen 0.2 Laboratory test finding 02/03/2005 N2N/[facility] Import BUN 7 mg/dL 4-18 Calcium 8.9 mg/dL 8.4-10.6 Carbon Dioxide 23 mmol/L 20-32 Chloride 104 mmol/L 98-110 Creatinine, Serum 1.0 mg/dL 0.5-1.2 GFR (Calculated) >60 51 Glucose 109 mg/dL High 61-100 52 Potassium 3.6 mmol/L 3.5-5.3 Sodium 134 mmol/L Low 136-146 CBC 02/03/2005 N2N/[facility] Import Band 17.0 % High 0.0-4.0 Basophil Absolute 0.0 10^3 0.0-0.2 Basophils 0.0 % 0.0-2.0 Eosinophil Absolute 0.0 10^3 0.0-0.5 Eosinophils 0.0 % 0.0-6.0 Hematocrit 41.6 % 35.0-47.0 Hemoglobin 14.7 g/dL 11.8-15.8 Lymphocytes 6.0 % Low 15.0-45.0 Lymphocytes Absolute 0.6 10^3 Low 1.0-3.4 MCH 32.0 pg 27.5-33.5 MCHC 35.3 g/dL 32.0-36.0 MCV 90.6 fl 82.0-98.0 MPV 8.0 fl 6.5-10.5 Monocyte Absolute 0.5 10^3 0.2-1.0 Monocytes 5.0 % 2.0-13.0 Neutrophil Absolute 8.2 10^3 High 1.4-7.0 Platelet Count 267 10^3 130-400 RBC 4.59 10^6 3.80-5.30 RDW 12.7 % 11.5-14.5 Segmented Neutrophils 72.0 % 44.0-74.0 WBC 9.2 10^3 4.3-10.9 Laboratory test finding 01/07/2005 N2N/[facility] Import BUN 11 mg/dL 4-18 Calcium 9.9 mg/dL 8.4-10.6 Carbon Dioxide 25 mmol/L 20-32 Chloride 105 mmol/L 98-110 Creatinine, Serum 1.0 mg/dL 0.5-1.2 GFR (Calculated) >60 53 Glucose 90 mg/dL 61-110 Hemoglobin A1c 5.3 % 54 Potassium 4.0 mmol/L 3.5-5.3 Sodium 140 mmol/L 136-146 1 Z13.71 2 Result: CARRIER Single mutation (H63D) identified Interpretation: This patient's sample was analyzed for the hereditary hemochromatosis (HH) mutations C282Y, H63D, and S65C. A single copy of H63D was identified. Results for C282Y and S65C were negative. 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 Approximately 1 in 9 Caucasians are carriers of HH. The mutations analyzed by [employer] are most common in the population. Because this panel does not identify rare HH mutations or HH mutations found in other ethnic groups, there are a small number of people who may have a single copy of H63D who are actually affected. The diagnosis of HH should include clinical findings and other test results, such as transferrin-iron saturation and/or serum ferritin studies and/or liver biopsy. HH is inherited in a recessive manner. Should this individual have children with a partner who is also a carrier for HH, there is a 25% chance per offspring that he/she is affected. Genetic counseling and HH molecular testing are recommended for at-risk family members. Methodology: DNA Analysis of the HFE gene was performed by PCR amplification followed by restriction enzyme digestion analyses. Reference: Nisha JS and Jarad AP. (2000). Jaye Test 4:97-101. Karla MAI et al. (1999). AM J Prev Med 16:134-140. Bosindy A (2002). Lancet 360(3773):1673-81. Shelly Otto et al. (2002). Blood Cells, Molecules. and Diseases. 293):418-432. Guanaco Galarza et al. (2003). Jaye Med. 5(1):1-8. Karla MAI et al. (2003). Jaye Med. 5(4):304-10. This test was developed and its performance characteristics determined by [employer]. It has not been cleared or approved by the Food and Drug Administration. Genetic counselors are available for health care providers to discuss results at [phone]. Cathleen Viera, PhD, FACMG Sofy Perez, PhD, FACMG Manisha Sullivan MOmerS., PhD, FACMG Keya Mccoy, PhD, FACMG Jessica Millan, PhD, FACMG Mt Santos, PhD, FACMG Performed at: [facility] [id number] [place], [place] [id number] Babbitter: Yareli Danielle MD, Phone: [phone] 3 F41.9,B00.1,F41.9 4 Note: Persistent reduction for 3 months or more in an eGFR <60 mL/min/1.73 m2 defines CKD. Patients with eGFR values >/=60 mL/min/1.73 m2 may also have CKD if evidence of persistent proteinuria is present. The original MDRD equation for estimated GFR is not valid for patients less than 18 years of age. Additional information may be found at www.kdoqi.org. 5 Microbiology results SOURCE Clean Catch Midstream FINAL RESULT No growth 6 Unless otherwise specified, testing performed by [facility] [address] [place] [id number] 7 F41.9 8 Note: Persistent reduction for 3 months or more in an eGFR <60 mL/min/1.73 m2 defines CKD. Patients with eGFR values >/=60 mL/min/1.73 m2 may also have CKD if evidence of persistent proteinuria is present. The original MDRD equation for estimated GFR is not valid for patients less than 18 years of age. Additional information may be found at www.kdoqi.org. 9 Values below the stated reference ranges of AST and ALT can be seen in normal populations. Clinical correlation is suggested. 10 Performed at: - [facility] [id number] Babbitter: Sherry Thomas MD, Phone: [phone] 11 Reference Guidelines*: Desirable: ........... < 200 mg/dL Borderline High: ..... 200-239 mg/dL High: ................ >=240 mg/dL * The National Cholesterol Education Program (NCEP) 12 Reference Guidelines*: Normal: ............. < 150 mg/dL Borderline High: .... 150-199 mg/dL High: ............... 200-499 mg/dL Very High: .......... > 500 mg/dL * Source: National Cholesterol Education Program (NCEP) 13 Reference Guidelines*: Low HDL: ..... < 40 mg/dL Normal: ..... 40-60 mg/dL Desirable: ... > 60 mg/dL *The National Cholesterol Education Program(NCEP) 14 Reference Guidelines*: Optimal:........... <100 mg/dL Near Optimal....... 100-129 mg/dL Borderline High.... 130-159 mg/dL High............... 160-189 mg/dL Very High.......... >=190 mg/dL * Source: National Cholesterol Education Program (NCEP) 15 Values below the stated reference ranges of AST and ALT can be seen in normal populations. Clinical correlation is suggested. 16 QUERY: Is Patient Fasting? Y 17 Note: Persistent reduction for 3 months or more in an eGFR <60 mL/min/1.73 m2 defines CKD. Patients with eGFR values >/=60 mL/min/1.73 m2 may also have CKD if evidence of persistent proteinuria is present. The original MDRD equation for estimated GFR is not valid for patients less than 18 years of age. Additional information may be found at www.kdoqi.org. 18 1 lavender; 1 large SST 19 CHOL/HDL Risk Ratio Levels MALE FEMALE 1/2 X Average 3.4 3.3 Average 5.0 4.4 2 X Average 9.5 7.0 3 X Average 24.0 11.0 20 >59 mL/min/1.73m2 21 RN-[facility] [place] [facility] [phone] FEW EPI, NO ORGANISMS SEEN 23 Escherichia coli Predominating GENITAL CULTURE organism 1 Escherichia coli Predominating Amikacin <=2 Susceptible Amoxicillin/CA <=2 Susceptible Ampicillin 4 Susceptible Aztreonam <=1 Susceptible Cefazolin <=4 Susceptible Cefoxitin <=4 Susceptible Ciprofloxacin <=0.25 Susceptible Ertapenem <=0.5 Susceptible Gentamicin <=1 Susceptible Imipenem <=0.25 Susceptible Levofloxacin <=0.12 Susceptible Piperacillin/tazobactam <=4 Susceptible Trimethoprim/Sulfa <=20 Susceptible 24 RN-[facility] [place] [address] [facility] [phone] 25 1 lavender; 1 SST 26 >59 mL/min/1.73m2 27 [employer]. DEPARTMENT OF PATHOLOGY or Extension 6455 SURGICAL PATHOLOGY REPORT PATIENT: MAXI CARPIO : 1980 AGE: 33 Y SEX: F ACCT: [id number] PROCEDURE DATE: 11/06/2013 DATE RECEIVED: 11/07/2013 REQUESTING PROVIDER: J CARLOS HARGROVE MD LOCATION: [facility] Case No. [id number] FINAL DIAGNOSIS: A. SKIN LESION, LEFT SCAPULAR AREA (PUNCH BIOPSY): JUNCTIONAL MELANOCYTIC NEVUS. B. SKIN LESION, MID DORSAL SPINE (PUNCH BIOPSY): DERMAL NEVUS WITH CONGENITAL FEATURES, COMPLETELY EXCISED. MK0/gb D/T 11/08/13 GROSS DESCRIPTION: Received in formalin in two parts. Each container is labeled with the patient's name Maxi Carpio. A. Labeled with the lab #[id number], consists of an unoriented 1.3 x 0.55 x 0.35 cm off-white ragged firm rubbery elongated thin ellipse of skin. The skin surface notes a 0.25 x 0.2 cm ovoid light to dark argueta irregularly bordered macule. The base contains a small amount of subcutaneous fat and the margin is inked black. It is serially sectioned. TS/1 B. Labeled with the lab #[id number], consists of a 1.6 x 0.65 x 0.4 cm white ragged elongated thin ellipse of skin. Off-center is a 0.4 x 0.4 cm round light argueta rubbery unevenly raised wrinkled hair-bearing papule that is 0.1 cm to its closest margin. The base contains a small amount of subcutaneous fat and the margin is inked half black and half blue. It is serially sectioned. TS/1 AP/slm D/T 11/07/13 CLINICAL DATA: [address]774 A-LEFT SCAPULAR AREA IRREGULAR NEVUS, RULE OUT DYSPLASIA B-MID DORSAL SPINE NEVUS, RAISED NEVUS, RULE OUT DYSPLASIA SPECIMEN SUBMITTED: (A) NEVUS, LEFT SCAPULAR AREA(B) NEVUS, MID DORSAL SPINE 238.2 ADDITIONAL COPIES SENT TO: Electronically Signed by: Signed Date and Time: HEMANT BOATENG MD PATHOLOGIST 11/08/2013 16:34 Performed at [facility], [address] [place] [address] This report may include one or more immunohistochemistry stain results which use analyte-specific reagents. The interpretation of the above immunohistochemistry stain or stains is guided by published results in the medical literature, provided package information from the body stylist and by internal review of staining performance and assay validation within the Immunohistochemistry Department of [facility]. This testing has not been cleared or approved by the U.S. Food and Drug Administration (FDA). The FDA has determined that such clearance or approval is not necessary. These tests are used for clinical purposes and should not be regarded as investigational or research. Special stains and/or immunohistochemical stains were performed with appropriately stained positive and negative controls. . 28 0 - 0.5 ng/mL: No evidence of myocardial injury 0.6 - 1.4 ng/mL: Mild elevation, suggesting possible myocardial injury > 1.4 ng/mL: Consistent with myocardial injury 29 Note: Persistent reduction for 3 months or more in an eGFR <60 mL/min/1.73 m2 defines CKD. Patients with eGFR values >/=60 mL/min/1.73 m2 may also have CKD if evidence of persistent proteinuria is present. The original MDRD equation for estimated GFR is not valid for patients less than 18 years of age. Additional information may be found at www.kdoqi.org. 30 0 - 0.5 ng/mL: No evidence of myocardial injury 0.6 - 1.4 ng/mL: Mild elevation, suggesting possible myocardial injury > 1.4 ng/mL: Consistent with myocardial injury 31 0 - 0.5 ng/mL: No evidence of myocardial injury 0.6 - 1.4 ng/mL: Mild elevation, suggesting possible myocardial injury > 1.4 ng/mL: Consistent with myocardial injury 32 2 lavender; 1 SST 33 >59 mL/min/1.73m2 34 HGBA1C (%) GLUCOSE CONTROL <6 NORMAL >=6.5 SUGGESTIVE OF DIABETES 35 CHOL/HDL Risk Ratio Levels MALE FEMALE 1/2 X Average 3.4 3.3 Average 5.0 4.4 2 X Average 9.5 7.0 3 X Average 24.0 11.0 36 Streptococcus agalactiae - (Group B) >100,000 col/ml URINE CULTURE organism 1 Streptococcus agalactiae - (Group B) >100,000 col/ ml 37 1 lavender; 1 SST 38 >59 mL/min/1.73m2 39 RUN DATE: 10/21/11 [facility] NMI LIVE PAGE 1 RUN TIME: 0820 Specimen Inquiry RUN USER: INTERFACE Name: MAXI CARPIO Status: [facility] Re10/19/11 Age/Sex: 31/F Unit#: [id number] Location: [facility] : 82 SPEC #: [id number] SPENCER: 10/19/11 STATUS: COMP REQ #: [id number] RECD: 10/19/[address] [facility] [address]: Lisa WISDOM,Darrian SOURCE: THROAT ENTR: 10/19/[address]: Patrice WISDOM,J Carlos [facility]: ORDERED: THROAT-BETA STR ACT WKST: BS 10/21/11 #1 Procedure Result Verified Site > THROAT-BETA STREP CULTURE Final 10/21/11- 08 ML NEGATIVE FOR GROUP A BETA STREPTOCOCCUS ML - [facility] Permit #[id number] [facility] Dates [facility] [id number] DEPARTMENT OF PATHOLOGY, [facility] DATES [place], [place] [address] [facility] Permit #[id number] Edward Meza M.D. Director Marjorie Dalton M.D. Cookie Padder 40 >59 mL/min/1.73m2 41 CHOL/HDL Risk Ratio Levels MALE FEMALE 1/2 X Average 3.4 3.3 Average 5.0 4.4 2 X Average 9.5 7.0 3 X Average 24.0 11.0 42 0 - 0.6 NG/ML: NO EVIDENCE OF MYOCARDIAL INJURY 0.7 - 1.5 NG/ML: MILD ELEVATION, SUGGESTING POSSIBLE MYOCARDIAL INJURY > 1.5 NG/ML: CONSISTENT WITH MYOCARDIAL INJURY 43 Note: [facility] has established a 97.89% negative predictive value for thrombotic disease when a cutoff value of 0.5 ug/mL is used. Additional performance parameters for local prevalence of 94.4% as follows: PPV: 9.92%, Sensitivity: 76.47%, Specificity: 61.12% 44 Note: Persistent reduction for 3 months or more in an eGFR <60 mL/min/1.73 m2 defines CKD. Patients with eGFR values >/=60 mL/min/1.73 m2 may also have CKD if evidence of persistent proteinuria is present. The original MDRD equation for estimated GFR is not valid for patients less than 18 years of age. Additional information may be found at www.kdoqi.org. 45 mL/min/1.73m2 . Normal Function or Mild Renal Disease, if clinically at risk: >or=60 Moderately decreased: 30 - 59 Severely decreased: 15 - 29 Renal Failure: <15 . Please note that the MDRD equation requires an additional adjustment for -Americans (multiply the GFR result by 1.210). . Glomerular Filtration Rate (GFR) is estimated based on the MDRD equation, which assumes a steady state for creatinine (Sudha Int Med 139/2 137-149, 2003), as recommended by the National Kidney Disease Education Program in conjunction with the National Institutes of Health and the National Kidney Foundation. . Clinical conditions in which it may be necessary to measure GFR by using clearance methods include extremes of age and body size, severe malnutrition or obesity, diseases of skeletal muscle, paraplegia or quadriplegia, vegetarian diet, rapidly changing kidney function, and calculation of the dose of potentially toxic drugs that are excreted by the kidneys. 46 Cholesterol Risk Levels (NIH) Recommended: under 200 mg/dl Borderline : 200-239 mg/dl High Risk : Above 240 mg/dl 47 The National Cholesterol Education Program recommends the following ranges for LDL Cholesterol: Optimal under 100 mg/dl Near or above Optimal 100 - 129 mg/dl Borderline High 130 - 159 mg/dl High 160 - 189 mg/dl Very High above 190 mg/dl 48 Triglyceride Risk Levels: Normal : <150 mg/dl Borderline : 150-199 mg/dl High : 200-499 mg/dl Very High : >500 mg/dl 49 CHOL/HDL Risk Ratio Levels MALE FEMALE 1/2 X Average 3.4 3.3 Average 5.0 4.4 2 X Average 9.5 7.0 3 X Average 24.0 11.0 50 LDL/HDL Risk Ratio Levels MALE FEMALE 1/2 X Average 1.00 1.47 Average 3.55 3.22 2 X Average 6.25 5.03 3 X Average 7.99 6.14 51 mL/min/1.73m2 . Normal Function or Mild Renal Disease, if clinically at risk: >or=60 Moderately decreased: 30 - 59 Severely decreased: 15 - 29 Renal Failure: <15 . Please note that the MDRD equation requires an additional adjustment for -Americans (multiply the GFR result by 1.210). . Glomerular Filtration Rate (GFR) is estimated based on the MDRD equation, which assumes a steady state for creatinine (Sudha Int Med 139/2 137-149, 2003), as recommended by the National Kidney Disease Education Program in conjunction with the National Institutes of Health and the National Kidney Foundation. . Clinical conditions in which it may be necessary to measure GFR by using clearance methods include extremes of age and body size, severe malnutrition or obesity, diseases of skeletal muscle, paraplegia or quadriplegia, vegetarian diet, rapidly changing kidney function, and calculation of the dose of potentially toxic drugs that are excreted by the kidneys. . 52 . Effective January 26, 2005: Please note a change in adult reference range. 53 mL/min/1.73m2 . Normal Function or Mild Renal Disease, if clinically at risk: >or=60 Moderately decreased: 30 - 59 Severely decreased: 15 - 29 Renal Failure: <15 . Please note that the MDRD equation requires an additional adjustment for -Americans (multiply the GFR result by 1.210). . Glomerular Filtration Rate (GFR) is estimated based on the MDRD equation, which assumes a steady state for creatinine (Sudha Int Med 139/2 137-149, 2003), as recommended by the National Kidney Disease Education Program in conjunction with the National Institutes of Health and the National Kidney Foundation. . Clinical conditions in which it may be necessary to measure GFR by using clearance methods include extremes of age and body size, severe malnutrition or obesity, diseases of skeletal muscle, paraplegia or quadriplegia, vegetarian diet, rapidly changing kidney function, and calculation of the dose of potentially toxic drugs that are excreted by the kidneys. . 54 HGBA1C (%) GLUCOSE CONTROL >8 Action Suggested 7-8 Good Control <7 Goal 6-7 Near Normal Glycem <6 Non-diabetic Level . 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 N39.0 Urinary tract infection, site not specified Z68.32 Body mass index (BMI) 32.0-32.9, adult Office Visit 07/09/2017 4:15p [facility] Stephanie Velez MD B00.1 Herpesviral vesicular dermatitis F41.9 Anxiety disorder, unspecified H10.45 Other chronic allergic conjunctivitis J30.89 Other allergic rhinitis L20.9 Atopic dermatitis, unspecified K64.4 Residual hemorrhoidal skin tags R12 Heartburn Office Visit 01/04/2017 4:00p [facility] Stephanie Velez MD B00.1 Herpesviral vesicular dermatitis F41.9 Anxiety disorder, unspecified H10.45 Other chronic allergic conjunctivitis J30.89 Other allergic rhinitis L20.9 Atopic dermatitis, unspecified K64.4 Residual hemorrhoidal skin tags R12 Heartburn S93.402A Sprain of unspecified ligament of LEFT ankle, init encntr Office Visit 07/06/2016 3:30p [facility] Stephanie Velez MD B00.1 Herpesviral vesicular dermatitis F41.9 Anxiety disorder, unspecified H10.45 Other chronic allergic conjunctivitis J30.89 Other allergic rhinitis L20.9 Atopic dermatitis, unspecified K64.4 Residual hemorrhoidal skin tags R12 Heartburn Office Visit 01/24/2016 1:15p [facility] Stephanie Velez MD B00.1 Herpesviral vesicular dermatitis F41.9 Anxiety disorder, unspecified H10.45 Other chronic allergic conjunctivitis J30.89 Other allergic rhinitis L20.9 Atopic dermatitis, unspecified K64.4 Residual hemorrhoidal skin tags R12 Heartburn Z13.220 Encounter for screening for lipoid disorders Plan of Treatment Future Appointment(s):02/16/2019 9:00 am - Stephanie Velez MD at [facility]08/18/2018 - Stephanie Velez MDB00.1 Herpesviral vesicular dermatitisComments:oral medication works well for cold soresFollow up:6 mo f/u with nonfasting labs shpxpG94.9 Anxiety disorder, unspecifiedNew Labs:CBC With Auto Diff, Scheduled: 02/08/19TSH-fcmg, Scheduled: 02/08/19CMP, Comp Metabolic-Fcmg, Scheduled: Comments:doing well on current [id number] Other chronic allergic conjunctivitisComments:symptoms are controlled at this time.J30.89 Other allergic rhinitisComments:controlled with nasal sprays - refill today - can use zyrtec or rose for breakthrough symptoms (claritin is not strong enough) .L20.9 Atopic dermatitis, unspecifiedComments:uses a steroid ointment for this - counseled to use this sparingly as it can thin the skin.K64.4 Residual hemorrhoidal skin tagsComments:occasionally uses hydrocortisone [id number] HeartburnComments:has weaned off omeprazole and uses zantac as needed and doing well.Z13.31 Encounter for screening for depressionComments:screening for depression is negative PHQ-2=0Z68.33 Body mass index (BMI) 33.0-33.9, adultComments:your goal BMI is between 18.5 and 25. Your are overweight. work on improving your diet to help with weight loss.AllNew Medication: Ranitidine HCL 150 mg - 1 by mouth twice a day as needed
[2018-08-24 07:26] VITALS: BP 103/55
--- NOTE | 2018-08-24 07:36 | UC ---
Allergic Reaction HPI - HPI Summary HPI Summary: 38-year-old woman comes in with a chief complaint of a rash in his groin about 4 days. It's itchy. It's on her arms and legs. On her legs it's raised red patches that move around. She's tried a new be product 4 days ago when this started. She had a similar rash in the past that was also treated to a beauty product. No difficulty breathing or swallowing. She oatmeal bath last which did help decrease the itching and swelling. - History of Current Complaint Chief Complaint: UCRash Stated Complaint: ALLERGIC REACTION Time Seen by Provider: 08/24/18 07:34 Hx Last Menstrual Period: "...two weeks ago..." Pain Intensity: 0 - Allergies/Home Medications Allergies/Adverse Reactions: Allergies Allergy/AdvReac Type Severity Reaction Status Date / Time No Known Allergies Allergy Verified 08/24/18 07:24 Home Medications: Home Medications Conjugated Estrogens VAG CM* [Premarin VAG CREAM*] 1 applic VAGINAL MOTH [History Confirmed 08/24/18] Escitalopram Oxalate [Lexapro 10 mg] 10 mg PO DAILY 08/24/18 [History Confirmed 08/24/18] LevoCETirizine TAB (NF) [Xyzal TAB (NF)] 5 mg PO DAILY 08/24/18 [History Confirmed 08/24/18] PMH/Surg Hx/FS Hx/Imm Hx Previously Healthy: Yes - Surgical History Surgical History: None - Family History Known Family History: Negative: Cardiac Disease, Hypertension - Social History Alcohol Use: Rare Substance Use Type: None Smoking Status (MU): Never Smoked Tobacco - Immunization History Most Recent Influenza Vaccination: [id number] Review of Systems All Other Systems Reviewed And Are Negative: Yes Constitutional: Positive: Negative Skin: Positive: Rash Eyes: Positive: Negative ENT: Positive: Negative Respiratory: Positive: Negative Cardiovascular: Positive: Negative Gastrointestinal: Positive: Negative Motor: Positive: Negative Neurovascular: Positive: Negative Musculoskeletal: Positive: Negative Neurological: Positive: Negative Psychological: Positive: Negative Is Patient Immunocompromised?: No Physical Exam Triage Information Reviewed: Yes Appearance: Well-Appearing, No Pain Distress, Well-Nourished Vital Signs: Initial Vital Signs Temp 98.4 F 08/24/18 07:19 Pulse 64 08/24/18 07:19 Resp 16 08/24/18 07:19 BP 103/55 08/24/18 07:19 Pulse Ox 100 08/24/18 07:19 Vital Signs Reviewed: Yes Eye Exam: Normal Eyes: Positive: Conjunctiva Clear ENT: Positive: Pharynx normal Neck exam: Normal Neck: Positive: Supple Respiratory: Positive: Lungs clear, Normal breath sounds, No respiratory distress Cardiovascular: Positive: RRR Musculoskeletal Exam: Normal Musculoskeletal: Positive: Strength Intact, ROM Intact Neurological Exam: Normal Neurological: Positive: Alert, Muscle Tone Normal Psychological Exam: Normal Psychological: Positive: Age Appropriate Behavior Skin: Positive: Other - Erythematous slightly raised rash on both arms. It blanches. Allergic Reaction Course/Dx - Differential Dx/Diagnosis Provider Diagnosis: Allergic reaction Discharge - Sign-Out/Discharge Documenting (check all that apply): Patient Departure All imaging exams completed and their final reports reviewed: No Studies - Discharge Plan Condition: Stable Disposition: HOME Prescriptions: predniSONE TAB* [Deltasone 20 MG TAB*] 40 mg PO DAILY #10 tab Patient Education Materials: General Allergic Reaction (ED) Referrals: Stephanie Velez MD [Primary Care Provider] - Additional Instructions: FOLLOW UP WITH YOUR DOCTOR IF NOT COMPLETELY IMPROVED. GET RECHECKED SOONER WITH ANY WORSENING OF YOUR CONDITION OR QUESTIONS OR CONCERNS. - Billing Disposition and Condition Condition: STABLE Disposition: Home
== END 2018-08-24 07:49 | disposition home or self-care (01) ==
LOC: UCCORT 07:00
DX: T78.40XA Allergy, unspecified, initial encounter (principal); X58.XXXA Exposure to other specified factors, initial encounter
CPT/HCPCS: 99212; G0463

== ENCOUNTER 2019-03-20 08:33 | Emergency (ER) | payer BC ==
[2019-03-20 08:54] VITALS: BP 113/75
--- NOTE | 2019-03-20 09:09 | UC ---
Back Pain HPI - HPI Summary HPI Summary: Pt presents with c/o coccyx/tailbone pain that is worsening s/p fall on ice on . Pt states that she has had a BM that was "somewhat painful" this morning. Pt has prolapsed bladder, uses a pessary and has urinary retention. - History of Current Complaint Chief Complaint: UCBackPain Stated Complaint: S/P FALL TAILBONE Time Seen by Provider: 03/20/19 08:50 Hx Obtained From: Patient Hx Last Menstrual Period: 3 weeks ?: No Onset/Duration: Sudden Onset, Lasting Days, Still Present Timing: Constant Severity Initially: Moderate Severity Currently: Moderate Pain Intensity: 2 Back Pain: Is Discrete @ - coccyx Character: Dull, Aching Aggravating Factor(s): Movement, Walking Alleviating Factor(s): Rest, Position Associated Signs And Symptoms: Positive: Negative - Risk Factors AAA Risk Factors: Negative Cauda Equina Risk Factors: Negative Epidural Abscess Risk Factors: Negative - Allergies/Home Medications Allergies/Adverse Reactions: Allergies Allergy/AdvReac Type Severity Reaction Status Date / Time environmental Allergy Eyes Uncoded 03/20/19 08:45 Itchy/Swollen/Red/Watery Home Medications: Home Medications raNITIdine HCl [Ranitidine HCl] 150 mg PO QPM 03/20/19 [History Confirmed ] PMH/Surg Hx/FS Hx/Imm Hx Previously Healthy: Yes Psychological History: Depression - Surgical History Surgical History: None - Family History Known Family History: Negative: Cardiac Disease, Hypertension - Social History Occupation: Employed Full-time Lives: With Family Alcohol Use: Rare Substance Use Type: None Smoking Status (MU): Never Smoked Tobacco Have You Smoked in the Last Year: No - Immunization History Most Recent Influenza Vaccination: [id number] Review of Systems All Other Systems Reviewed And Are Negative: Yes Constitutional: Positive: Negative Skin: Positive: Negative Eyes: Positive: Negative ENT: Positive: Negative Respiratory: Positive: Negative Cardiovascular: Positive: Negative Gastrointestinal: Positive: Negative Genitourinary: Positive: Other - has hx of urinary retention and prolapsed bladder Motor: Positive: Negative Neurovascular: Positive: Negative Musculoskeletal: Positive: Negative Neurological: Positive: Negative Psychological: Positive: Negative Is Patient Immunocompromised?: No Physical Exam Triage Information Reviewed: Yes Appearance: Well-Appearing Vital Signs: Initial Vital Signs Temp 97.5 F 03/20/19 08:51 Pulse 67 03/20/19 08:51 Resp 18 03/20/19 08:51 BP 113/75 03/20/19 08:51 Pulse Ox 99 03/20/19 08:51 Vital Signs Reviewed: Yes Eye Exam: Normal ENT Exam: Normal Dental Exam: Normal Neck exam: Normal Respiratory: Positive: No respiratory distress Musculoskeletal Exam: Normal Musculoskeletal: Positive: Other: - tenderness upper left buttock Neurological Exam: Normal Psychological Exam: Normal Skin Exam: Normal Diagnostics - Radiology No standard instances Radiology Interpretation Completed By: Radiologist - Medical Assistant Dermatology: Terese Enriquez S, ([id number]) Mental Health Case Manager: CALVIN (NUANCE) Report Date: 2018 09:02:00 Report Status: Final ======= Start of Report Content Patient Name: MAXI CHAPMAN Medical Record#: [id number] Ordering Physician: Love Galloway NP Acct.#: [id number] : 1980 Age: 38 Sex: F Location: [facility] Exam Date: 03/20/19901 ADM Status: [facility] ER Order Information: SACRUM/COCCYX 2+ VWS Accession Number: [id number] CPT: 66384 Indication: Back injury. 3 views of the sacrum and coccyx demonstrates fracture of the coccygeal segment slight displacement ventrally. IMPRESSION: Oblique fracture of the distal coccygeal segment with slight depression. <Electronically signed by Terese Enriquez MD in OV> 03/20/19951 Dictated By: Terese Enriquez MD Dictated Date/ Time: 03/20/19950 Transcribed Date/Time: 03/20/19950 Copy to: CC:Stephanie Velez MD; Love Galloway PASTORAL WORKER; Danny Aponte MD Imaging - [facility] Imaging - [place] [facility] Imaging - [facility] [address] [place], [place] [id number] [place] [id number] [place] [id number] ph [phone]) ph ([phone]) ph ([phone]) ===== End of Report Content Back Pain Course/Dx - Differential Dx/Diagnosis Differential Diagnosis/HQI/PQRI: Fracture Provider Diagnosis: Fractured coccyx Discharge ED - Sign-Out/Discharge Documenting (check all that apply): Patient Departure All imaging exams completed and their final reports reviewed: Yes - Discharge Plan Condition: Stable Disposition: HOME Prescriptions: Ibuprofen TAB* [Motrin TAB* 800 MG] 800 mg PO Q8H PRN #15 tab PRN Reason: Pain - Moderate Patient Education Materials: Coccyx Injury (ED) Referrals: Stephanie Velez MD [Primary Care Provider] - If Needed Romario Prince MD [Medical Doctor] - 2 Days Additional Instructions: Please follow up with your PCP and an orthopedic provider. If your symptoms worsen please go directly to the closest Emergency Room. - Billing Disposition and Condition Condition: STABLE Disposition: Home
== END 2019-03-20 09:45 | disposition home or self-care (01) ==
LOC: UCCORT 08:33
DX: S32.2XXA Fracture of coccyx, initial encounter for closed fracture (principal); W00.0XXA Fall on same level due to ice and snow, initial encounter; Y92.9 Unspecified place or not applicable
CPT/HCPCS: 72220; 99212; G0463